=== PATIENT | male | born 1980 | race Caucasian/White ===

== ENCOUNTER 2023-03-02 13:20 | Emergency (ER) | payer BC ==
[~2023-03-02 13:20] MED LIST: Iopamidol 370 76% 100 ML VIAL ONE
[2023-03-02 14:20] LABS: ALT (SGPT) 15 U/L (8-55); AST (SGOT) 25 U/L (5-34); Alkaline Phosphatase 104 U/L (40-110); Anion Gap 14 mmol/L (10-20); BUN (Urea Nitrogen) 18 mg/dL (8.9-20.6); Bilirubin, Total 0.4 mg/dL (0.2-1.2); Calc. Creatinine Clearance 0 mL/min (70-130); Carbon Dioxide 21 mmol/L (22-29); Chloride 104 mmol/L (98-107); Estimated GFR 92; Globulin 2.9 g/dL (2.4-3.5); Glucose 125 mg/dL (70-105); Potassium 5.4 mmol/L (3.5-5.1); Protein, Total 6.9 g/dL (6.0-8.3); Sodium 134 mmol/L (136-145)
[2023-03-02 14:23] LABS: Troponin I Less than 0.010 ng/mL (< 0.028)
[2023-03-02 14:53] LABS: #Basophils 0.1 10x3/uL (0.0-0.2); #Eosinphils 0.2 10x3/uL (0.0-0.5); #Monocytes 0.8 10x3/uL (0.0-1.1); #Neutrophils 8.1 10x3/uL (1.5-8.4); %Eosinophils 1.5 % (0.0-6.0); %Lymphocytes 16.4 % (18.0-47.0); %Neutrophils 73.6 % (40.0-75.0); Hematocrit 30.5 % (38.8-50.0); Hemoglobin 10.1 g/dL (13.5-17.5); Mean Corpuscular HGB CONC 33.1 g/dL (32.0-36.0); Mean Corpuscular Hemoglobin 30.3 pg (27.0-33.0); Mean Corpuscular Volume 91.6 fl (81.2-95.1); Mean Platelet Volume 9.3 fl (7.4-10.4); Platelet Count 300 10x3/uL (150-450); RBC Distribution Width 13.4 % (11.5-14.5); Red Blood Cell (RBC) Count 3.33 10x6/uL (4.32-5.72)
[2023-03-02] MEDS ORDERED: Hydrocortisone Sod Succ/PF 100 mg/2 ml Vial ONE (15:30)
[2023-03-02] MEDS ORDERED: fentaNYL 50 mcg/mL 1 mL Vial ONE (15:30)
[2023-03-02 16:33] LABS: Bilirubin Neg (Negative); Blood, Urine Negative (Negative); Clarity Clear (Clear); Glucose, Urine (Dipstick) Normal (Negative); Ketone, Urine Negative (Negative); Leukocyte Negative (Negative); Nitrite Negative (Negative); Protein, Urine (Dipstick) Negative (Neg-Trace); Urobilinogen Normal mg/dL (Less than 2); pH, Urine 6.5 (5.0-9.0)
[2023-03-02 16:57] LABS: Troponin I Less than 0.010 ng/mL (< 0.028)
[2023-03-02 17:00] LABS: Bacteria/HPF None Seen HPF (None Seen); CAUTI Indications for Culture Pelvic or flank pain; RBC/HPF None Seen HPF (0-3); Squamous Epithelial 0-3 HPF (0-3); WBC/HPF None Seen HPF (0-3)
[2023-03-02 17:01] LABS: Urine Culture Reflex No No
== END 2023-03-02 17:25 | disposition home or self-care (01) ==
LOC: CSHERS 13:20
DX: E87.5 Hyperkalemia (principal); I10 Essential (primary) hypertension; F17.210 Nicotine dependence, cigarettes, uncomplicated
CPT/HCPCS: 36415; 71045; 71275; 80053; 81001; 83605; 83880; 84484; 85025; 85379; 86850; 86900; 86901; 87040; 93005; 96361; 96374; 96375; J1720; J3010

== ENCOUNTER 2023-03-02 18:35 | Observation (INO) | payer BC ==
[2023-03-02 19:50] LABS: ALT (SGPT) 16 U/L (8-55); AST (SGOT) 23 U/L (5-34); Albumin 4.2 g/dL (3.5-5.0); Alkaline Phosphatase 110 U/L (40-110); Anion Gap 12 mmol/L (10-20); BUN (Urea Nitrogen) 15 mg/dL (8.9-20.6); Bilirubin, Total 0.4 mg/dL (0.2-1.2); Calc. Creatinine Clearance 0 mL/min (70-130); Calcium 9.1 mg/dL (7.8-10.44); Carbon Dioxide 23 mmol/L (22-29); Chloride 107 mmol/L (98-107); Estimated GFR 111; Globulin 3.3 g/dL (2.4-3.5); Glucose 122 mg/dL (70-105); Potassium 4.5 mmol/L (3.5-5.1); Protein, Total 7.5 g/dL (6.0-8.3); Sodium 137 mmol/L (136-145)
[2023-03-02] MEDS ORDERED: Senokot S 8.6-50 MG TAB PO PRN (19:57)
[2023-03-02] MEDS ORDERED: Acetaminophen 325 MG TAB PO PRN (19:57)
[2023-03-02] MEDS ORDERED: Ondansetron PF 4 MG/2 ML Vial IVP PRN (19:57)
[2023-03-02] MEDS ORDERED: Calcium Carbonate 500 MG ChewTAB PO PRN (19:57)
[2023-03-02] MEDS ORDERED: Sodium Chloride 0.9% 1,000 ML IV SCH (20:00)
[2023-03-02] MEDS ORDERED: traZODone HCl 50 MG TAB PO PRN (20:01)
[2023-03-02] MEDS ORDERED: hydrOXYzine Pamoate 25 mg Capsule PO PRN (20:03)
[2023-03-02 20:45] VITALS: BMI 29.2
[2023-03-02] MEDS ORDERED: Desmopressin 0.2 mg Tablet PO SCH (21:00)
[2023-03-02] MEDS: Gabapentin 400 MG CAP PO SCH (21:46)
[2023-03-02] MEDS: traMADol HCl 50 MG TAB PO PRN (21:47)
[2023-03-02] MEDS: OXcarbazepine 300 MG TAB PO SCH (21:47)
[2023-03-02] MEDS: QUEtiapine 100 MG TAB PO SCH (21:47)
[2023-03-02] MEDS ORDERED: traMADol HCl 50 MG TAB ONE (21:48)
[2023-03-02] MEDS ORDERED: Hydrocortisone Sod Succ/PF 100 mg/2 ml Vial IVP SCH (22:00)
[2023-03-02] MEDS ORDERED: Hydrocortisone Sod Succ/PF 100 mg/2 ml Vial ONE (22:49)
[2023-03-03] MEDS ORDERED: traZODone HCl 50 MG TAB ONE (00:19)
[2023-03-03] MEDS: traMADol HCl 50 MG TAB PO PRN ×2 (03:11→09:15)
[2023-03-03 04:19] LABS: Anion Gap 13 mmol/L (10-20); BUN (Urea Nitrogen) 13 mg/dL (8.9-20.6); Calc. Creatinine Clearance 173 mL/min (70-130); Carbon Dioxide 22 mmol/L (22-29); Chloride 107 mmol/L (98-107); Estimated GFR 115; Glucose 145 mg/dL (70-105); Magnesium 1.8 mg/dL (1.6-2.6); Sodium 138 mmol/L (136-145)
[2023-03-03 04:41] LABS: Free T4 (Free Thyroxine) 0.53 ng/dL (0.70-1.48); Thyroid Stimulating Hormone 0.6581 uIU/mL (0.35-4.94)
[2023-03-03] MEDS ORDERED: Nicotine 14 MG PATCH TOP SCH (05:00)
[2023-03-03] MEDS ORDERED: Hydrocortisone 10 mg Tablet PO SCH (06:00)
[2023-03-03] MEDS ORDERED: Nicotine 7 MG PATCH TOP SCH (06:00)
[2023-03-03] MEDS ORDERED: Folic Acid 1 MG TAB PO SCH (09:00)
[2023-03-03] MEDS ORDERED: Multivitamin W/ Minerals 1 TAB PO SCH (09:00)
[2023-03-03] MEDS ORDERED: Thiamine 100 MG TAB PO SCH (09:00)
[2023-03-03] MEDS ORDERED: Venlafaxine HCl XR 75 MG CAP PO SCH (09:00)
[2023-03-03] MEDS: Gabapentin 400 MG CAP PO SCH (09:24)
[2023-03-03] MEDS: OXcarbazepine 300 MG TAB PO SCH (09:25)
[2023-03-03] MEDS: QUEtiapine 100 MG TAB PO SCH (09:25)
[2023-03-03 12:47] VITALS: BP 117/60; TEMP 98.7
== END 2023-03-03 16:15 | disposition home or self-care (01) ==
LOC: CSHERS 18:35 → CSHERHOLD 19:56 → CSHTELE 03-03 02:30
PROVIDERS: ADMIT Student in an Organized Health Care Education/Training Program; ATTEND Internal Medicine
DX: E27.2 Addisonian crisis (principal); E87.1 Hypo-osmolality and hyponatremia; E87.5 Hyperkalemia; F10.20 Alcohol dependence, uncomplicated; F17.200 Nicotine dependence, unspecified, uncomplicated; D64.9 Anemia, unspecified; I10 Essential (primary) hypertension; F43.10 Post-traumatic stress disorder, unspecified; F41.9 Anxiety disorder, unspecified; F31.9 Bipolar disorder, unspecified; Z98.890 Other specified postprocedural states; Z79.899 Other long term (current) drug therapy; E78.5 Hyperlipidemia, unspecified; F17.210 Nicotine dependence, cigarettes, uncomplicated
CPT/HCPCS: 36415; 71045; 71275; 80048; 80053; 81001; 83605; 83735; 83880; 84439; 84443; 84484; 85025; 85379; 86850; 86900; 86901; 87040; 93005; 96361; 96374; 96375; 96376; G0378; J1720; J3010; J7050; Q9967

== ENCOUNTER 2023-03-10 07:06 | Emergency (ER) | payer BC ==
[2023-03-10] MEDS ORDERED: HYDROcodone/Acetaminophen 10/325 mg Tablet ONE (07:58)
[2023-03-10] MEDS ORDERED: Ketorolac Tromethamine 30 MG (1 mL) VIAL ONE (08:15)
== END 2023-03-10 08:45 | disposition home or self-care (01) ==
LOC: CSHERS 07:06
DX: S42.341A Displaced spiral fracture of shaft of humerus, right arm, initial encounter for closed fracture (principal); I10 Essential (primary) hypertension; F17.210 Nicotine dependence, cigarettes, uncomplicated; X50.1XXA Overexertion from prolonged static or awkward postures, initial encounter
CPT/HCPCS: 96372; J1885

== ENCOUNTER 2023-03-24 01:17 | Emergency (ER) | payer BC ==
[2023-03-24] MEDS ORDERED: HYDROcodone/Acetaminophen 10/325 mg Tablet ONE (01:46)
[2023-03-24] MEDS ORDERED: Ketorolac Tromethamine 30 MG (1 mL) VIAL ONE (01:51)
== END 2023-03-24 02:39 | disposition home or self-care (01) ==
LOC: CSHERS 01:17
DX: S42.201A Unspecified fracture of upper end of right humerus, initial encounter for closed fracture (principal); I10 Essential (primary) hypertension; F17.210 Nicotine dependence, cigarettes, uncomplicated; W18.30XA Fall on same level, unspecified, initial encounter; Z79.899 Other long term (current) drug therapy
CPT/HCPCS: 96372; J1885